=== PATIENT | female | born 1955 | race African-American/Black ===

== ENCOUNTER 2020-11-11 16:59 | Inpatient (IN) | payer OTHER ==
[2020-11-11 18:41] VITALS: BMI 31.8
[2020-11-11] MEDS ORDERED: DICYCLOMINE HCL 10 MG CAPSULE PO PRN (20:53)
[2020-11-11] MEDS ORDERED: NALOXONE HCL 0.4 MG/ML VIAL IM PRN (20:53)
[2020-11-11] MEDS ORDERED: BISMUTH SUBSALICYLATE 524 MG/30 ML UD PO PRN (20:53)
[2020-11-11] MEDS ORDERED: MENTHOL/PHENOL 1 EACH UD MM PRN (20:53)
[2020-11-11] MEDS ORDERED: MAG HYDROX/AL HYDROX/SIMETH 30 ML UNIT-DOSE CUP PO PRN (20:53)
[2020-11-11] MEDS ORDERED: NICOTINE POLACRILEX 2 MG GUM BUC PRN (20:53)
[2020-11-11] MEDS ORDERED: IBUPROFEN 400 MG TABLET (FP) PO PRN (20:53)
[2020-11-11] MEDS ORDERED: METHADONE HCL 10 MG TABLET (FOR DETOX USE ONLY) PO ONE (20:53)
[2020-11-11] MEDS ORDERED: cloNIDine HCL 0.1 MG TABLET PO PRN (20:53)
[2020-11-11] MEDS ORDERED: ONDANSETRON *ODT* 4 MG TABLET SL PRN (20:53)
[2020-11-11] MEDS ORDERED: MAGNESIUM CITRATE 300 ML BOTTLE PO PRN (20:53)
[2020-11-11] MEDS ORDERED: ACETAMINOPHEN 325 MG TABLET (FP) PO PRN ×2 (20:53)
[2020-11-11] MEDS ORDERED: P-EPHED 60MG/TRIPROLIDI 2.5MG TABLET PO PRN (20:53)
[2020-11-11] MEDS ORDERED: guaiFENesin 200 MG/10 ML 10 ML UNIT-DOSE CUPS PO PRN (20:53)
[2020-11-11] MEDS ORDERED: MAGNESIUM HYDROX 2400MG/30ML ORAL SUSPENSION 30 ML CUP PO PRN (20:53)
[2020-11-11] MEDS: diazePAM 5 MG TABLET PO PRN (22:53)
[2020-11-11] MEDS: THIAMINE HCL 100 MG TABLET (FP) PO SCH (22:54)
[2020-11-11] MEDS: MELATONIN 5 MG TABLETS PO SCH (22:54)
[2020-11-12] MEDS ORDERED: METHADONE HCL 10 MG TABLET (FOR DETOX USE ONLY) ONE (08:40)
[2020-11-12] MEDS ORDERED: METHADONE HCL 5 MG TABLET (FOR DETOX USE ONLY) ONE (08:40)
[2020-11-12] MEDS ORDERED: METHADONE (DETOX) 20 MG, METHADONE (DETOX) 5 MG PO ONE (10:00)
[2020-11-12] MEDS: NICOTINE 21 MG/24 HOURS TOPICAL PATCH TD SCH (10:27)
[2020-11-12] MEDS: PRENATAL VITAMINS W/ FOLIC ACID TABLET (FP) PO SCH (10:28)
[2020-11-12 12:03] LABS: POTASSIUM 4.4 mmol/L (3.5-5.1)
[2020-11-12 12:05] LABS: ALBUMIN 3.2 g/dl (3.4-5.0); BLOOD UREA NITROGEN 16.9 mg/dL (7-18); HEMATOCRIT 37.7 % (32.4-45.2); HEMOGLOBIN 12.3 GM/dL (10.7-15.3); MCH 27.8 pg (25.7-33.7); MCHC 32.6 g/dl (32.0-36.0); MEAN CELL VOLUME 85.2 fl (80-96); MEAN PLT VOLUME 9.2 fl (7.5-11.1); PLATELET COUNT 217 K/MM3 (134-434); RBC 4.42 M/mm3 (3.60-5.2); WHITE BLOOD COUNT 8.3 K/mm3 (4.0-10.0)
[2020-11-12 12:10] LABS: BILIRUBIN,TOTAL 0.4 mg/dL (0.2-1); TOT PROT 6.1 g/dl (6.4-8.2)
[2020-11-12] MEDS ORDERED: cloNIDine HCL 0.1 MG TABLET PO PRN (12:31)
[2020-11-12 16:30] LABS: EPI CELLS 22 /uL (0-25.1); HYALINE CASTS 1 /uL (0-3.1); URINE APPEARANCE TURBID; URINE BACTERIA 536 /uL (0-1359); URINE BILIRUBIN NEGATIVE (NEGATIVE); URINE COLOR YELLOW; URINE GLUCOSE (UA) NEGATIVE (NEGATIVE); URINE KETONE NEGATIVE (NEGATIVE); URINE LEUK ESTERASE NEGATIVE (NEGATIVE); URINE NITRITE NEGATIVE (NEGATIVE); URINE PROTEIN NEGATIVE (NEGATIVE); URINE RBC 80 /uL (0-23.9); URINE UROBILINOGEN 0.2 mg/dL (0.2-1.0); URINE WBC 6 /uL (0-25.8)
[2020-11-12] MEDS: THIAMINE HCL 100 MG TABLET (FP) PO SCH (22:32)
[2020-11-12] MEDS: MELATONIN 5 MG TABLETS PO SCH (22:32)
[2020-11-12] MEDS: diazePAM 5 MG TABLET PO PRN (22:32)
[2020-11-13] MEDS ORDERED: METHADONE HCL 10 MG TABLET (FOR DETOX USE ONLY) PO ONE (10:00)
[2020-11-13] MEDS: PRENATAL VITAMINS W/ FOLIC ACID TABLET (FP) PO SCH (10:20)
[2020-11-13] MEDS: NICOTINE 21 MG/24 HOURS TOPICAL PATCH TD SCH (10:20)
[2020-11-13] MEDS ORDERED: diazePAM 5 MG TABLET PO PRN (17:08)
[2020-11-13] MEDS: diazePAM 5 MG TABLET PO SCH ×2 (18:07→22:45)
[2020-11-13] MEDS: THIAMINE HCL 100 MG TABLET (FP) PO SCH (22:45)
[2020-11-13] MEDS: MELATONIN 5 MG TABLETS PO SCH (22:45)
[2020-11-14] MEDS: diazePAM 5 MG TABLET PO SCH ×4 (06:35→22:32)
[2020-11-14] MEDS ORDERED: METHADONE HCL 5 MG TABLET (FOR DETOX USE ONLY) ONE (08:49)
[2020-11-14] MEDS ORDERED: METHADONE HCL 10 MG TABLET (FOR DETOX USE ONLY) ONE (08:49)
[2020-11-14] MEDS: NICOTINE 21 MG/24 HOURS TOPICAL PATCH TD SCH (09:48)
[2020-11-14] MEDS: PRENATAL VITAMINS W/ FOLIC ACID TABLET (FP) PO SCH (09:49)
[2020-11-14] MEDS ORDERED: METHADONE (DETOX) 10 MG, METHADONE (DETOX) 5 MG PO ONE (10:00)
[2020-11-14] MEDS ORDERED: FLU VACCINE (FLULAVAL) PF 60 MCG/0.5 ML SYRINGE 2020-2021 IM ONE (12:00)
[2020-11-14] MEDS: MELATONIN 5 MG TABLETS PO SCH (22:31)
[2020-11-14] MEDS: THIAMINE HCL 100 MG TABLET (FP) PO SCH (22:32)
[2020-11-14] MEDS: METHOCARBAMOL 500 MG TABLET PO PRN (22:32)
[2020-11-15] MEDS ORDERED: diazePAM 5 MG TABLET PO PRN
[2020-11-15] MEDS: diazePAM 5 MG TABLET PO SCH ×3 (05:49→22:03)
[2020-11-15] MEDS ORDERED: diazePAM 5 MG TABLET PO SCH (06:00)
[2020-11-15] MEDS ORDERED: METHADONE HCL 10 MG TABLET (FOR DETOX USE ONLY) PO ONE (10:00)
[2020-11-15] MEDS: PRENATAL VITAMINS W/ FOLIC ACID TABLET (FP) PO SCH (10:46)
[2020-11-15] MEDS: NICOTINE 21 MG/24 HOURS TOPICAL PATCH TD SCH (10:46)
[2020-11-15] MEDS: MELATONIN 5 MG TABLETS PO SCH (22:03)
[2020-11-15] MEDS: THIAMINE HCL 100 MG TABLET (FP) PO SCH (22:03)
[2020-11-16] MEDS: diazePAM 5 MG TABLET PO SCH ×2 (05:48→19:00)
[2020-11-16] MEDS ORDERED: METHADONE HCL 5 MG TABLET (FOR DETOX USE ONLY) PO ONE (06:00)
[2020-11-16] MEDS: NICOTINE 21 MG/24 HOURS TOPICAL PATCH TD SCH (10:30)
[2020-11-16] MEDS: PRENATAL VITAMINS W/ FOLIC ACID TABLET (FP) PO SCH (10:30)
[2020-11-16] MEDS: THIAMINE HCL 100 MG TABLET (FP) PO SCH (23:39)
[2020-11-16] MEDS: MELATONIN 5 MG TABLETS PO SCH (23:39)
[2020-11-17] MEDS: METHOCARBAMOL 500 MG TABLET PO PRN (01:02)
[2020-11-17] MEDS ORDERED: METHADONE HCL 5 MG TABLET (FOR DETOX USE ONLY) PO ONE (06:00)
[2020-11-17] MEDS ORDERED: diazePAM 5 MG TABLET PO ONE ×2 (06:00)
[2020-11-17] MEDS: PRENATAL VITAMINS W/ FOLIC ACID TABLET (FP) PO SCH (11:17)
[2020-11-17] MEDS: NICOTINE 21 MG/24 HOURS TOPICAL PATCH TD SCH (11:17)
[2020-11-17 13:30] VITALS: BP 126/95; PULSE 82; TEMP 98.1
== END 2020-11-17 12:50 | disposition other institution (70) | DRG 773 ==
LOC: YASAS 16:59 → Y6N 22:00
PROVIDERS: ADMIT Allergy & Immunology; ATTEND Allergy & Immunology
PROC: HZ2ZZZZ Detoxification Services for Substance Abuse Treatment (ICD-10-PCS; principal; 2020-11-13)
DX: F11.23 Opioid dependence with withdrawal (principal); F10.230 Alcohol dependence with withdrawal, uncomplicated; F14.20 Cocaine dependence, uncomplicated; F17.210 Nicotine dependence, cigarettes, uncomplicated; F19.24 Other psychoactive substance dependence with psychoactive substance-induced mood disorder; J45.909 Unspecified asthma, uncomplicated; Z59.0 Homelessness
CPT/HCPCS: 36415; 80053; 81003; 85027; 86780; 87086; 93005; 93010; C9803; G0008; Q2036; U0003

== ENCOUNTER 2020-11-17 13:03 | Inpatient (IN) | payer OTHER ==
[2020-11-17] MEDS ORDERED: hydrOXYzine PAMOATE 25 MG CAPSULE (FP) PO PRN (15:37)
[2020-11-17] MEDS ORDERED: LOPERAMIDE HCL 2 MG CAPSULE PO PRN (15:37)
[2020-11-17] MEDS ORDERED: NICOTINE POLACRILEX 2 MG GUM BUC PRN (15:37)
[2020-11-17] MEDS ORDERED: MAGNESIUM HYDROX 2400MG/30ML ORAL SUSPENSION 30 ML CUP PO PRN (15:37)
[2020-11-17] MEDS ORDERED: P-EPHED 60MG/TRIPROLIDI 2.5MG TABLET PO PRN (15:37)
[2020-11-17] MEDS ORDERED: MAG HYDROX/AL HYDROX/SIMETH 30 ML UNIT-DOSE CUP PO PRN (15:37)
[2020-11-17] MEDS ORDERED: IBUPROFEN 400 MG TABLET (FP) PO PRN (15:37)
[2020-11-17] MEDS ORDERED: MAGNESIUM CITRATE 300 ML BOTTLE PO PRN (15:37)
[2020-11-17] MEDS ORDERED: guaiFENesin 200 MG/10 ML 10 ML UNIT-DOSE CUPS PO PRN (15:37)
[2020-11-17] MEDS ORDERED: MENTHOL/PHENOL 1 EACH UD MM PRN (15:37)
[2020-11-17] MEDS ORDERED: ACETAMINOPHEN 325 MG TABLET (FP) PO PRN (15:37)
[2020-11-17] MEDS: THIAMINE HCL 100 MG TABLET (FP) PO SCH (21:27)
[2020-11-17] MEDS: DORZOLAMIDE 2% HCL OPHTHALMIC SOLUTION 10 ML BOTTLE OU SCH (21:27)
[2020-11-17] MEDS: LATANOPROST 0.005% OPHTH SOLN 2.5ML BOTTLE OU SCH (21:28)
[2020-11-17] MEDS: MELATONIN 5 MG TABLETS PO SCH (21:29)
[2020-11-18] MEDS: DORZOLAMIDE 2% HCL OPHTHALMIC SOLUTION 10 ML BOTTLE OU SCH ×3 (06:28→21:41)
[2020-11-18 07:11] VITALS: TEMP 97.3
[2020-11-18] MEDS ORDERED: NICOTINE 7 MG/24 HOURS TOPICAL PATCH TD SCH (10:00)
[2020-11-18] MEDS: PRENATAL VITAMINS W/ FOLIC ACID TABLET (FP) PO SCH (11:00)
[2020-11-18] MEDS: LATANOPROST 0.005% OPHTH SOLN 2.5ML BOTTLE OU SCH ×2 (11:01→21:41)
[2020-11-18] MEDS: NICOTINE 21 MG/24 HOURS TOPICAL PATCH TD SCH (11:03)
[2020-11-18] MEDS: MELATONIN 5 MG TABLETS PO SCH (21:40)
[2020-11-18] MEDS: THIAMINE HCL 100 MG TABLET (FP) PO SCH (21:40)
[2020-11-19] MEDS: DORZOLAMIDE 2% HCL OPHTHALMIC SOLUTION 10 ML BOTTLE OU SCH (06:08)
[2020-11-19 09:32] VITALS: BP 94/68; PULSE 110
[2020-11-19] MEDS: PRENATAL VITAMINS W/ FOLIC ACID TABLET (FP) PO SCH (10:36)
[2020-11-19] MEDS: NICOTINE 21 MG/24 HOURS TOPICAL PATCH TD SCH (10:36)
[2020-11-19] MEDS: LATANOPROST 0.005% OPHTH SOLN 2.5ML BOTTLE OU SCH (10:37)
== END 2020-11-19 11:15 | disposition left against medical advice (07) | DRG 770 ==
LOC: YASAS 13:03 → Y3W 13:04
PROVIDERS: ADMIT Allergy & Immunology; ATTEND Allergy & Immunology
PROC: HZ42ZZZ Group Counseling for Substance Abuse Treatment, Cognitive-Behavioral (ICD-10-PCS; principal; 2020-11-17)
DX: F11.20 Opioid dependence, uncomplicated (principal); F10.20 Alcohol dependence, uncomplicated; F14.20 Cocaine dependence, uncomplicated; F17.210 Nicotine dependence, cigarettes, uncomplicated; F19.24 Other psychoactive substance dependence with psychoactive substance-induced mood disorder; H40.9 Unspecified glaucoma; Z87.09 Personal history of other diseases of the respiratory system

== ENCOUNTER 2022-05-16 10:38 | Inpatient (IN) | payer OTHER ==
[2022-05-16 12:21] VITALS: BMI 34.5
[2022-05-16] MEDS ORDERED: DICYCLOMINE HCL 10 MG CAPSULE PO PRN (13:11)
[2022-05-16] MEDS ORDERED: IBUPROFEN 400 MG TABLET (FP) PO PRN (13:11)
[2022-05-16] MEDS ORDERED: BENZOCAINE/MENTHOL (CHLORASEPTIC ) LOZENGE MM PRN (13:11)
[2022-05-16] MEDS ORDERED: MAGNESIUM HYDROX 2400MG/30ML ORAL SUSPENSION 30 ML CUP PO PRN (13:11)
[2022-05-16] MEDS ORDERED: NICOTINE 10 MG CARTRIDGE (INHALER) IH PRN (13:11)
[2022-05-16] MEDS ORDERED: chlordiazePOXIDE HCL 25 MG CAPSULE PO PRN (13:11)
[2022-05-16] MEDS ORDERED: MAG HYDROX/AL HYDROX/SIMETH 30 ML UNIT-DOSE CUP PO PRN (13:11)
[2022-05-16] MEDS ORDERED: MAGNESIUM CITRATE 300 ML BOTTLE PO PRN (13:11)
[2022-05-16] MEDS ORDERED: IBUPROFEN 600 MG TABLET (FP) PO PRN (13:11)
[2022-05-16] MEDS ORDERED: methaDONE HCL 10 MG TABLET (FOR DETOX USE ONLY) PO ONE (13:11)
[2022-05-16] MEDS ORDERED: BISMUTH SUBSALICYLATE 262 MG/15 ML BTL PO PRN (13:11)
[2022-05-16] MEDS ORDERED: ONDANSETRON *ODT* 4 MG TABLET SL PRN (13:11)
[2022-05-16] MEDS ORDERED: ACETAMINOPHEN 325 MG TABLET (FP) PO PRN ×2 (13:11)
[2022-05-16] MEDS ORDERED: LOPERAMIDE HCL 2 MG CAPSULE PO PRN (13:11)
[2022-05-16] MEDS ORDERED: cloNIDine HCL 0.1 MG TABLET PO PRN (13:11)
[2022-05-16] MEDS ORDERED: methaDONE HCL 10 MG TABLET (FOR DETOX USE ONLY) ONE (14:22)
[2022-05-16] MEDS ORDERED: hydrOXYzine PAMOATE 25 MG CAPSULE (FP) PO ONE (14:22)
[2022-05-16] MEDS: hydrOXYzine PAMOATE 25 MG CAPSULE (FP) PO SCH ×3 (14:26→23:03)
[2022-05-16] MEDS: PRENATAL VITAMINS W/ FOLIC ACID TABLET (FP) PO SCH (15:42)
[2022-05-16 16:32] LABS: HEMATOCRIT 40.2 % (32.4-45.2); HEMOGLOBIN 13.2 GM/dL (10.7-15.3); MCH 27.3 pg (25.7-33.7); MCHC 32.8 g/dl (32.0-36.0); MEAN CELL VOLUME 83.3 fl (80-96); MEAN PLT VOLUME 8.7 fl (7.5-11.1); PLATELET COUNT 229 10^3/uL (134-434); RBC 4.83 M/mm3 (3.60-5.2); RDW 14.6 % (11.6-15.6); WHITE BLOOD COUNT 7.5 K/mm3 (4.0-10.0)
[2022-05-16 16:36] LABS: ALBUMIN 3.9 g/dl (3.4-5.0); BLOOD UREA NITROGEN 8.6 mg/dL (7-18); CALCIUM 9.4 mg/dL (8.5-10.1)
[2022-05-16 16:39] LABS: CREATININE 1.1 mg/dL (0.55-1.3)
[2022-05-16 16:41] LABS: BILIRUBIN,TOTAL 0.5 mg/dL (0.2-1); TOT PROT 7.7 g/dl (6.4-8.2)
[2022-05-16] MEDS: chlordiazePOXIDE HCL 25 MG CAPSULE PO SCH ×2 (18:00→23:01)
[2022-05-16] MEDS: THIAMINE HCL 100 MG TABLET (FP) PO SCH (23:01)
[2022-05-16] MEDS: MELATONIN 5 MG TABLETS PO SCH (23:01)
[2022-05-17] MEDS: chlordiazePOXIDE HCL 25 MG CAPSULE PO SCH ×4 (06:58→22:46)
[2022-05-17] MEDS: hydrOXYzine PAMOATE 25 MG CAPSULE (FP) PO SCH ×5 (06:59→22:45)
[2022-05-17] MEDS: PRENATAL VITAMINS W/ FOLIC ACID TABLET (FP) PO SCH (10:56)
[2022-05-17] MEDS: METHOCARBAMOL 500 MG TABLET PO PRN (18:20)
[2022-05-17] MEDS: MELATONIN 5 MG TABLETS PO SCH (22:45)
[2022-05-17] MEDS: THIAMINE HCL 100 MG TABLET (FP) PO SCH (22:45)
[2022-05-18] MEDS: chlordiazePOXIDE HCL 25 MG CAPSULE PO SCH ×4 (05:01→22:26)
[2022-05-18] MEDS: hydrOXYzine PAMOATE 25 MG CAPSULE (FP) PO SCH ×5 (05:01→22:26)
[2022-05-18] MEDS ORDERED: methaDONE HCL 10 MG TABLET (FOR DETOX USE ONLY) PO ONE (10:00)
[2022-05-18] MEDS: PRENATAL VITAMINS W/ FOLIC ACID TABLET (FP) PO SCH (11:24)
[2022-05-18] MEDS: METHOCARBAMOL 500 MG TABLET PO PRN (17:42)
[2022-05-18] MEDS: MELATONIN 5 MG TABLETS PO SCH (22:26)
[2022-05-18] MEDS: THIAMINE HCL 100 MG TABLET (FP) PO SCH (22:26)
[2022-05-19] MEDS ORDERED: chlordiazePOXIDE HCL 10 MG CAPSULE PO PRN
[2022-05-19] MEDS: chlordiazePOXIDE HCL 10 MG CAPSULE PO SCH ×4 (07:49→22:55)
[2022-05-19] MEDS: hydrOXYzine PAMOATE 25 MG CAPSULE (FP) PO SCH ×5 (07:49→22:55)
[2022-05-19] MEDS: PRENATAL VITAMINS W/ FOLIC ACID TABLET (FP) PO SCH (10:49)
[2022-05-19] MEDS: DORZOLAMIDE 2% HCL OPHTHALMIC SOLUTION 10 ML BOTTLE OU SCH ×2 (15:27→22:57)
[2022-05-19] MEDS: THIAMINE HCL 100 MG TABLET (FP) PO SCH (22:55)
[2022-05-19] MEDS: LATANOPROST 0.005% OPHTH SOLN 2.5ML BOTTLE OU SCH (22:57)
[2022-05-19] MEDS: MELATONIN 5 MG TABLETS PO SCH (22:57)
[2022-05-20] MEDS: chlordiazePOXIDE HCL 10 MG CAPSULE PO SCH ×2 (05:32→17:10)
[2022-05-20] MEDS: hydrOXYzine PAMOATE 25 MG CAPSULE (FP) PO SCH ×5 (05:33→23:54)
[2022-05-20] MEDS ORDERED: methaDONE HCL 10 MG TABLET (FOR DETOX USE ONLY) PO ONE (10:00)
[2022-05-20] MEDS: PRENATAL VITAMINS W/ FOLIC ACID TABLET (FP) PO SCH (11:25)
[2022-05-20] MEDS: DORZOLAMIDE 2% HCL OPHTHALMIC SOLUTION 10 ML BOTTLE OU SCH ×3 (15:15→23:54)
[2022-05-20 18:00] VITALS: RESP 18
[2022-05-20] MEDS: MELATONIN 5 MG TABLETS PO SCH (23:53)
[2022-05-20] MEDS: LATANOPROST 0.005% OPHTH SOLN 2.5ML BOTTLE OU SCH (23:54)
[2022-05-20] MEDS: THIAMINE HCL 100 MG TABLET (FP) PO SCH (23:54)
[2022-05-21] MEDS ORDERED: chlordiazePOXIDE HCL 10 MG CAPSULE PO ONE (05:00)
[2022-05-21] MEDS: hydrOXYzine PAMOATE 25 MG CAPSULE (FP) PO SCH ×2 (06:12→10:35)
[2022-05-21] MEDS: DORZOLAMIDE 2% HCL OPHTHALMIC SOLUTION 10 ML BOTTLE OU SCH (06:12)
[2022-05-21 09:44] VITALS: BP 137/87; PULSE 80; TEMP 97.8
[2022-05-21] MEDS: PRENATAL VITAMINS W/ FOLIC ACID TABLET (FP) PO SCH (10:34)
== END 2022-05-21 10:48 | disposition home or self-care (01) | DRG 773 ==
LOC: YASAS 10:38 → SUATTDRO 10:38 → Y6N 14:25
PROVIDERS: ADMIT Allergy & Immunology; ATTEND Surgery
PROC: HZ2ZZZZ Detoxification Services for Substance Abuse Treatment (ICD-10-PCS; principal; 2022-05-16)
DX: F11.23 Opioid dependence with withdrawal (principal); F10.230 Alcohol dependence with withdrawal, uncomplicated; F14.20 Cocaine dependence, uncomplicated; F17.210 Nicotine dependence, cigarettes, uncomplicated; F19.24 Other psychoactive substance dependence with psychoactive substance-induced mood disorder; J45.909 Unspecified asthma, uncomplicated; H40.9 Unspecified glaucoma
CPT/HCPCS: 36415; 80053; 82962; 85027; 86780; C9803-CS; U0003; U0005